=== PATIENT | female | born 1965 | race Two or more races ===

== ENCOUNTER 2024-09-24 13:20 | Observation (INO) | payer OTHER ==
[2024-09-24] MEDS ORDERED: ACETAMINOPHEN INJECTION 100 ML ONE (14:34)
[2024-09-24] MEDS ORDERED: ONDANSETRON 4 MG/2 ML VIAL ONE (14:34)
[2024-09-24] MEDS: ONDANSETRON 4 MG/2 ML VIAL IVPB ONE (14:41)
[2024-09-24] MEDS: SODIUM CHLORIDE 0.9% 500 ML INFUS.BAG IV ONE (14:41)
[2024-09-24] MEDS: ACETAMINOPHEN 1000 MG/100 ML BAG IVPB ONE (14:41)
[2024-09-24] MEDS: ACETAMINOPHEN 325 MG TABLET (FP) PO ONE (14:42)
[2024-09-24 14:45] LABS: ABSOLUTE IMMATURE GRANULOCYTES 0.07 x10^3/uL (0.0-0.031); BASOPHILS # 0.04 x10^3/uL (0.01-0.08); EOSINOPHIL % 0.5 % (0.7-5.8); EOSINOPHILS # 0.06 x10^3/uL (0.04-0.36); MCHC 31.2 g/dl (32.2-35.5); MEAN CELL VOLUME 88.4 fl (79.4-94.8); MEAN PLT VOLUME 10.8 fl (9.4-12.3); MONOCYTE # 0.80 x10^3/uL (0.24-0.86); MONOCYTE % 6.7 % (4.7-12.5); RDW 12.4 % (12.3-16.6)
[2024-09-24 14:50] LABS: URINE APPEARANCE CLEAR; URINE BILIRUBIN NEGATIVE (NEGATIVE); URINE COLOR YELLOW; URINE GLUCOSE (UA) NEGATIVE (NEGATIVE); URINE KETONE NEGATIVE (NEGATIVE); URINE LEUK ESTERASE NEGATIVE (NEGATIVE); URINE NITRITE NEGATIVE (NEGATIVE); URINE PROTEIN NEGATIVE (NEGATIVE); URINE UROBILINOGEN 0.2 mg/dL (0.2-1.0)
[2024-09-24 15:12] LABS: CREATININE 0.6 mg/dL (0.55-1.3)
[2024-09-24 15:13] LABS: SGOT/AST 18.0 U/L (15-37); SGPT/ALT 32.0 U/L (13-61)
[2024-09-24 15:14] LABS: CO2 29.0 mmol/L (21-32); GLUCOSE,RANDOM 103.0 mg/dL (74-106); TOT PROT 7.2 g/dl (6.4-8.2)
[2024-09-24 15:18] LABS: ALK PHOS 75.0 U/L (45-117)
[2024-09-24 23:25] LABS: HCV DIAGNOSTIC IN-HOUSE W/RFLX NON-REACTIVE (NONREACTIVE); HIV INTERPRETATION NEGATIVE (NEGATIVE)
[2024-09-25 00:14] VITALS: BMI 30.4
[2024-09-25] MEDS: CEFTRIAXONE 2 GM-D5W BAG 2 GM/50 ML BAG IVPB ONE (00:33)
[2024-09-25] MEDS ORDERED: ONDANSETRON 4 MG/2 ML VIAL IVPUSH PRN (01:14)
[2024-09-25] MEDS: SODIUM CHLORIDE 1,000 ML IV SCH (01:54)
[2024-09-25] MEDS: ACETAMINOPHEN 325 MG TABLET (FP) PO PRN (05:55)
[2024-09-25 08:08] LABS: ABSOLUTE IMMATURE GRANULOCYTES 0.03 x10^3/uL (0.0-0.031); BASOPHILS # 0.05 x10^3/uL (0.01-0.08); EOSINOPHIL % 1.8 % (0.7-5.8); EOSINOPHILS # 0.12 x10^3/uL (0.04-0.36); MCHC 30.5 g/dl (32.2-35.5); MEAN CELL VOLUME 89.7 fl (79.4-94.8); MEAN PLT VOLUME 11.0 fl (9.4-12.3); MONOCYTE # 0.57 x10^3/uL (0.24-0.86); MONOCYTE % 8.5 % (4.7-12.5); RDW 12.3 % (12.3-16.6)
[2024-09-25 08:38] LABS: CO2 29.0 mmol/L (21-32); GLUCOSE,RANDOM 111.0 mg/dL (74-106)
[2024-09-25 08:41] LABS: CREATININE 0.6 mg/dL (0.55-1.3); SGOT/AST 15.0 U/L (15-37); SGPT/ALT 26.0 U/L (13-61)
[2024-09-25 08:42] LABS: TOT PROT 6.2 g/dl (6.4-8.2)
[2024-09-25 08:43] LABS: ALK PHOS 58.0 U/L (45-117)
[2024-09-25] MEDS: POLYETHYLENE GLYCOL (HEALTHYLAX) 3350 17 GM PACKET PO SCH (14:04)
[2024-09-25 18:53] VITALS: BP 104/59; PULSE 70; RESP 16; TEMP 97.5
[2024-09-25] MEDS ORDERED: POLYETHYLENE GLYCOL (HEALTHYLAX) 3350 17 GM PACKET PO SCH (22:00)
[2024-09-25] MEDS ORDERED: CEFTRIAXONE 1 GM in DEXTROSE 5%-WATER - 50 ML IVPB SCH (22:00)
== END 2024-09-25 19:29 | disposition home or self-care (01) ==
LOC: JER 13:20 → JERBED 20:11 → J7W 23:31
PROVIDERS: ADMIT Internal Medicine; ATTEND Internal Medicine
PROC: 3E03329 Introduction of Other Anti-infective into Peripheral Vein, Percutaneous Approach (ICD-10-PCS; principal; 2024-09-24)
PROC: 3E033NZ Introduction of Analgesics, Hypnotics, Sedatives into Peripheral Vein, Percutaneous Approach (ICD-10-PCS; 2024-09-24)
PROC: 3E033GC Introduction of Other Therapeutic Substance into Peripheral Vein, Percutaneous Approach (ICD-10-PCS; 2024-09-24)
PROC: 3E0337Z Introduction of Electrolytic and Water Balance Substance into Peripheral Vein, Percutaneous Approach (ICD-10-PCS; 2024-09-24)
DX: K57.92 Diverticulitis of intestine, part unspecified, without perforation or abscess without bleeding (principal); K59.09 Other constipation; R10.9 Unspecified abdominal pain; Z90.79 Acquired absence of other genital organ(s); Z86.718 Personal history of other venous thrombosis and embolism; Z90.49 Acquired absence of other specified parts of digestive tract
CPT/HCPCS: 36415; 74177-TC; 76830-TC; 80053; 81003; 83605; 83690; 83735; 84100; 85025; 86140; 86803; 87086; 87389; 96361; 96365; 96366; 96367; 96375; 99285-25; G0378; Q9967